=== PATIENT | female | born 1965 | race Caucasian/White ===

== ENCOUNTER 2024-07-30 11:02 | Emergency (ER) | payer OTHER ==
[~2024-07-30] VITALS: Ht 160 cm; Wt 59.0 kg
[2024-07-30] MEDS ORDERED: HYDROCODONE/APAP 5/325MG TABLET ONE (11:16)
[2024-07-30] MEDS ORDERED: ONDANSETRON 4 MG TAB.RAPDIS ONE (11:17)
[2024-07-30] MEDS: ONDANSETRON 4 MG TAB.RAPDIS SL ONE (11:22)
[2024-07-30] MEDS: HYDROCODONE/APAP 5/325MG TABLET PO ONE (11:22)
[2024-07-30] MEDS ORDERED: ACETAMINOPHEN ES 500 MG TABLET ONE (12:24)
[2024-07-30] MEDS ORDERED: HYDR-3976 GT (12:26)
[2024-07-30] MEDS ORDERED: NALO4SPR BNOSTRILS (12:26)
[2024-07-30] MEDS ORDERED: ONDA4TAB11 PO (12:26)
[2024-07-30] MEDS: ACETAMINOPHEN ES 500 MG TABLET PO ONE (12:27)
[2024-07-30 14:06] VITALS: BP 138/72; TEMP 98.3; O2SAT 98
== END 2024-07-30 14:07 | disposition home or self-care (01) ==
LOC: ER 11:26
DX: S42.491A Other displaced fracture of lower end of right humerus, initial encounter for closed fracture (principal); W01.0XXA Fall on same level from slipping, tripping and stumbling without subsequent striking against object, initial encounter; Y93.01 Activity, walking, marching and hiking; Y92.89 Other specified places as the place of occurrence of the external cause; Y99.8 Other external cause status
CPT/HCPCS: 73080-TC; Q0162